=== PATIENT | male | born 1970 | race Two or more races ===

== ENCOUNTER 2023-04-01 15:39 | Emergency (ER) | payer OTHER ==
[~2023-04-01] VITALS: Ht 167.6 cm; Wt 70.8 kg
== END 2023-04-01 21:12 | disposition home or self-care (01) ==
LOC: ER 15:39
DX: U07.1 COVID-19 (principal)

== ENCOUNTER 2023-08-17 11:08 | Emergency (ER) | payer OTHER ==
[~2023-08-17] VITALS: Ht 172.7 cm; Wt 76.7 kg
== END 2023-08-17 14:32 | disposition home or self-care (01) ==
LOC: ER 11:08
DX: M54.50 Low back pain, unspecified (principal)